=== PATIENT | female | born 1990 | race African-American/Black ===

== ENCOUNTER 2022-05-16 10:58 | Emergency (ER) | payer BC ==
[2022-05-16 14:58] LABS: CARBON DIOXIDE,CO2 27.4 mmol/L (21.0-32.0); POTASSIUM,K 3.4 mmol/L (3.5-5.1)
== END 2022-05-16 16:52 | disposition home or self-care (01) ==
LOC: MW.ED 10:58
DX: O20.9 Hemorrhage in early pregnancy, unspecified (principal)
CPT/HCPCS: 36415; 76801; 76801-26; 80048; 81001; 81025; 84702; 85025; 86900; 86901; 99283; 99284

== ENCOUNTER 2022-05-18 06:38 | Emergency (ER) | payer OTHER, BC ==
[2022-05-18] MEDS ORDERED: Acetaminophen 500 MG Tab PO ONE (07:15)
== END 2022-05-18 09:37 | disposition home or self-care (01) ==
LOC: MW.ED 06:38
DX: Z04.1 Encounter for examination and observation following transport accident (principal); Z3A.01 Less than 8 weeks gestation of pregnancy
CPT/HCPCS: 71045; 76801; 81001; 81025; 93005; 99284; A9270; 93010; 99283

== ENCOUNTER 2023-01-09 06:26 | Inpatient (IN) | payer BC ==
[2023-01-09] MEDS ORDERED: Sodium Chloride 0.9% 20 ML SDV IV PRN (06:34)
[2023-01-09] MEDS ORDERED: Sodium Chloride 0.9% 2.5 ML Syringe FLUSH PRN (06:34)
[2023-01-09] MEDS ORDERED: Citric Acid/Sodium Citrate Solution 30 ML Cup PO ONE (06:34)
[2023-01-09] MEDS ORDERED: Sodium Chloride 0.9% 10 ML Syringe FLUSH PRN (06:34)
[2023-01-09] MEDS ORDERED: ceFAZolin 2 GM in Sodium Chloride 0.9% 50 ML IV ONE (06:37)
[2023-01-09] MEDS ORDERED: Oxytocin/0.9 % Sodium Chloride 30 UNIT/500 ML BAG IV SCH ×2 (06:45→09:30)
[2023-01-09] MEDS: Lactated Ringers 1,000 ML IV SCH ×2 (06:50→07:16)
[2023-01-09] MEDS ORDERED: Oxytocin 10 Units/1 ML SDV ONE (07:44)
[2023-01-09] MEDS ORDERED: Ondansetron 4 MG/2 ML SDV ONE (07:44)
[2023-01-09] MEDS ORDERED: Ropivacaine 0.5% 5 MG/ML 30 ML SDV ONE (07:44)
[2023-01-09] MEDS ORDERED: ceFAZolin 1 GM Vial ONE (07:44)
[2023-01-09] MEDS ORDERED: Dexamethasone 4 MG/ML 5 ML MDV ONE (07:44)
[2023-01-09] MEDS ORDERED: Morphine PF 10 MG/10 ML SDV ONE (07:44)
[2023-01-09] MEDS ORDERED: fentaNYL 100 MCG/2 ML SDV ONE (07:44)
[2023-01-09] MEDS ORDERED: Ketorolac 30 MG/ML SDV ONE (07:44)
[2023-01-09] MEDS ORDERED: Bupivacaine 0.5% 10 ML SDV ONE (07:45)
[2023-01-09] MEDS ORDERED: Phenylephrine 1% 10 MG/ML SDV ONE (08:07)
[2023-01-09] MEDS ORDERED: ceFAZolin 2 GM Vial ONE (08:15)
[2023-01-09] MEDS ORDERED: Tranexamic Acid 1,000 MG in Sodium Chloride 0.9% 100 ML IV PRN (09:26)
[2023-01-09] MEDS ORDERED: Ondansetron 4 MG/2 ML SDV IVPUSH PRN ×2 (09:26→09:34)
[2023-01-09] MEDS ORDERED: Lanolin 100% Cream 7 GM Tube TOP PRN (09:26)
[2023-01-09] MEDS ORDERED: Oxytocin 10 Units/1 ML SDV IM PRN (09:26)
[2023-01-09] MEDS ORDERED: Misoprostol 200 MCG Tab RECTAL PRN (09:26)
[2023-01-09] MEDS ORDERED: Methylergonovine 0.2 MG/1 ML Amp IM PRN (09:26)
[2023-01-09] MEDS ORDERED: diphenhydrAMINE 50 MG/ML SDV IVPUSH PRN ×2 (09:26→09:34)
[2023-01-09] MEDS ORDERED: Bisacodyl 10 MG Supp RECTAL PRN (09:26)
[2023-01-09] MEDS ORDERED: Lactated Ringers 1,000 ML IV SCH (09:30)
[2023-01-09] MEDS ORDERED: Acetaminophen/oxyCODONE 325-5 MG Tab PO PRN (09:34)
[2023-01-09] MEDS ORDERED: ePHEDrine 50 MG/ML SDV IVPUSH PRN (09:34)
[2023-01-09] MEDS ORDERED: fentaNYL 100 MCG/2 ML SDV IVPUSH PRN (09:34)
[2023-01-09] MEDS: Ketorolac 30 MG/ML SDV IVPUSH SCH ×2 (13:59→20:12)
[2023-01-09] MEDS: Docusate Sodium 100 MG Cap PO SCH (20:12)
[2023-01-10] MEDS: Ketorolac 30 MG/ML SDV IVPUSH SCH ×3 (02:06→14:00)
[2023-01-10] MEDS: Docusate Sodium 100 MG Cap PO SCH ×2 (08:49→20:42)
[2023-01-10] MEDS: Prenatal Multivitamin with Calcium/Folic Acid/Iron Tab PO SCH (08:49)
[2023-01-10] MEDS: Acetaminophen/oxyCODONE 325-5 MG Tab PO PRN ×2 (14:15→19:38)
[2023-01-10] MEDS: Ibuprofen 800 MG Tab PO PRN (18:37)
[2023-01-11] MEDS: Acetaminophen/oxyCODONE 325-5 MG Tab PO PRN ×2 (00:43→06:14)
[2023-01-11] MEDS: Ibuprofen 800 MG Tab PO PRN ×2 (04:39→12:10)
[2023-01-11] MEDS: Prenatal Multivitamin with Calcium/Folic Acid/Iron Tab PO SCH (08:46)
[2023-01-11] MEDS: Docusate Sodium 100 MG Cap PO SCH (08:47)
== END 2023-01-11 12:55 | disposition home or self-care (01) | DRG 540 ==
LOC: MW.OB 06:26
PROVIDERS: ADMIT Obstetrics & Gynecology; ATTEND Obstetrics & Gynecology
PROC: 10D00Z1 Extraction of Products of Conception, Low, Open Approach (ICD-10-PCS; principal; 2023-01-09)
DX: O34.211 Maternal care for low transverse scar from previous cesarean delivery (principal); O99.824 Streptococcus B carrier state complicating childbirth; O99.214 Obesity complicating childbirth; O69.2XX0 Labor and delivery complicated by other cord entanglement, with compression, not applicable or unspecified; Z37.0 Single live birth; Z90.721 Acquired absence of ovaries, unilateral; Z3A.39 39 weeks gestation of pregnancy
CPT/HCPCS: 01961; 36415; 59025; 64488; 82803; 85014; 85018; 85027; 86592; 86850; 86900; 86901; A9270-GY; J0690; J1100; J1885; J2274; J2370; J2405; J2590; J2795; J3010; J3490; J7120

== ENCOUNTER 2023-06-05 06:49 | Day surgery (SDC) | payer BC ==
[~2023-06-05 06:49] MED LIST: Lactated Ringers 1,000 ML IV SCH
[2023-06-05] MEDS ORDERED: FERRIC SUBSULFATE ONE (07:19)
[2023-06-05] MEDS ORDERED: Lidocaine 1% with EPINEPHrine 1:100,000 50 ML MDV ONE (07:19)
[2023-06-05] MEDS ORDERED: Iodine/Potassium Iodide 60 ML Bottle ONE (07:19)
[2023-06-05] MEDS ORDERED: Propofol 200 MG/20 ML SDV ONE (07:39)
[2023-06-05] MEDS ORDERED: propofoL 50 ML ONE (07:39)
[2023-06-05] MEDS ORDERED: fentaNYL 250 MCG/5 ML SDV ONE (07:39)
[2023-06-05] MEDS ORDERED: HYDROmorphone 1 MG/ML Syringe IVPUSH PRN (07:51)
[2023-06-05] MEDS ORDERED: Morphine 2 MG/ML SYRINGE IVPUSH PRN (07:51)
[2023-06-05] MEDS ORDERED: Naloxone 0.4 MG/ML SDV IVPUSH PRN (07:51)
[2023-06-05] MEDS ORDERED: Metoclopramide 10 MG/2 ML SDV IVPUSH PRN (07:51)
[2023-06-05] MEDS ORDERED: fentaNYL 50 MCG/ML SDV IVPUSH PRN (07:51)
[2023-06-05] MEDS ORDERED: Ondansetron 4 MG/2 ML SDV IVPUSH PRN (07:51)
[2023-06-05] MEDS ORDERED: Albuterol 0.083% 2.5 MG/3 ML Neb Soln NEB PRN (07:51)
[2023-06-05] MEDS ORDERED: droPERidol 5 MG/2 ML SDV IVPUSH PRN (07:51)
[2023-06-05] MEDS ORDERED: Dexamethasone 4 MG/ML 5 ML MDV ONE (08:28)
[2023-06-05] MEDS ORDERED: Ondansetron 4 MG/2 ML SDV ONE (08:28)
[2023-06-05] MEDS ORDERED: Sugammadex Sodium 200 MG/2 ML VIAL ONE ×2 (08:28→09:08)
[2023-06-05] MEDS ORDERED: Ketorolac 30 MG/ML SDV ONE (08:28)
[2023-06-05] MEDS ORDERED: Rocuronium Bromide 50 MG/5 ML Syringe ONE (08:50)
[2023-06-05] MEDS ORDERED: Succinylcholine/Sod PF 100 MG/5 ML SYRINGE IV ONE (08:50)
== END 2023-06-05 11:38 | disposition home or self-care (01) ==
LOC: MW.SDS 06:49
PROVIDERS: ATTEND Obstetrics & Gynecology
DX: N72 Inflammatory disease of cervix uteri (principal); D06.9 Carcinoma in situ of cervix, unspecified; A63.0 Anogenital (venereal) warts; E66.9 Obesity, unspecified; Z79.899 Other long term (current) drug therapy; Z87.891 Personal history of nicotine dependence; Z68.41 Body mass index [BMI] 40.0-44.9, adult
CPT/HCPCS: 57522; A9270; J0131; J0330; J1100; J1885; J2405; J2704; J3010; J3490; J7120; 00940